=== PATIENT | male | born 1940 | race Caucasian/White ===

== ENCOUNTER 2021-05-06 09:15 | Emergency (ER) | payer OTHER ==
[~2021-05-06] VITALS: Ht 177.8 cm; Wt 77.1 kg
[2021-05-06] MEDS ORDERED: AMLO10 PO (09:30)
[2021-05-06] MEDS ORDERED: ESCI10 PO (09:31)
[2021-05-06] MEDS ORDERED: DONE5 PO (09:31)
[2021-05-06] MEDS ORDERED: INSULANI (09:31)
[2021-05-06] MEDS ORDERED: MELA3 PO (09:32)
[2021-05-06] MEDS ORDERED: Prinivil10 MG PO (09:32)
[2021-05-06] MEDS ORDERED: MAGNESIUM OXID500 MG PO (09:32)
[2021-05-06] MEDS ORDERED: QUET300 PO (09:33)
[2021-05-06] MEDS ORDERED: MIRT30 PO (09:33)
[2021-05-06] MEDS ORDERED: VITAMIN D310 MC1 (09:33)
== END 2021-05-06 11:20 | disposition home or self-care (01) ==
LOC: ER 09:15
DX: I10 Essential (primary) hypertension (principal); F03.90 Unspecified dementia, unspecified severity, without behavioral disturbance, psychotic disturbance, mood disturbance, and anxiety; Z79.899 Other long term (current) drug therapy; Z79.4 Long term (current) use of insulin
CPT/HCPCS: 99283

== ENCOUNTER → 2022-04-28 | Outpatient (CLI) | payer OTHER ==
[~2022-04-28] MED LIST: AMLO10 PO; DONE5 PO; ESCI10 PO; INSULANI; MAGNESIUM OXID500 MG PO; MELA3 PO; MIRT30 PO; Prinivil10 MG PO; QUET300 PO; VITAMIN D310 MC1
[2022-04-28 10:43] LABS: Source, Urine Clean Catch
[2022-04-28 13:23] LABS: Appearance, Urine Hazy (Clear); Bilirubin, Urine Neg (Neg); Blood, Urine 3+ (Neg); Color, Urine Yellow (P-Yellow); Glucose Qualitative, Urine 2+ (Neg); Ketones, Urine Neg (Neg); Leukocyte Esterase, Urine 3+ (Neg); Nitrite, Urine Neg (Neg); Protein, Urine 3+ (Neg); Specific Gravity, Urine 1.025 (1.003-1.022); Urobilinogen, Urine NORM (Normal)
[2022-04-28 13:56] LABS: Bacteria Few /hpf; Mucus Mod (0-Heavy); Renal Epithelial Few /hpf (0-Rare); Squamous Epithelial Cells Few /hpf (Few)
== END | disposition home or self-care (01) ==
LOC: LAB 07:45 → LAB SHORT 07:45
PROVIDERS: Nurse Practitioner Acute Care
DX: N39.0 Urinary tract infection, site not specified (principal)
CPT/HCPCS: 81001; 87086